=== PATIENT | male | born 1995 | race Caucasian/White ===

== ENCOUNTER 2017-05-19 11:00 | Emergency (ER) | payer OTHER ==
[~2017-05-19] VITALS: Ht 172.7 cm; Wt 68.0 kg
[2017-05-19 11:00] VITALS: BP 134/78
--- NOTE | 2017-05-19 11:51 | PHYS DOC ---
Past History Past Medical History: No Pertinent History Past Surgical History: No Surgical History Alcohol Use: None Drug Use: None Adult General Chief Complaint Chief Complaint: WRIST PAIN HPI HPI 22-year-old male presenting to the emergency department today with left wrist pain after falling with an outstretched arm. His fall occurred on . He has noticed pain in his wrist is mild nonradiating worse with movement of the wrist. It happened while he was at work. Review of systems is negative for chest pain shortness of breath fevers chills nausea vomiting. He denies any other injuries. All other review of systems is negative unless otherwise noted in history of present illness. ED course: 22-year-old male presenting to the emergency department today with left wrist pain. X-rays unremarkable. Patient discharged home to follow up with PCP. Patient was offered a splint for comfort. The patient was then discharged home in stable condition to follow up with their primary care physician over the next 2-3 days. They were to return if their symptoms worsened or if they were concerned for any reason. [id number] discharge instructions and return precautions were given. Patient's questions were answered to their satisfaction. Patient is comfortable plan. Review of Systems Review of Systems SEE ABOVE. Allergies Allergies Allergies Coded Allergies Type Severity Reaction Last Updated Verified No Known Drug Allergies 05/19/17 No Physical Exam Physical Exam Constitutional: Well developed, well nourished, no acute distress, non-toxic appearance. [] HENT: Normocephalic, atraumatic, bilateral external ears normal, oropharynx moist, no oral exudates, nose normal. [] Eyes: PERRLA, EOMI, conjunctiva normal, no discharge. [] Neck: Normal range of motion, no tenderness, supple, no stridor. [] Cardiovascular:Heart rate regular rhythm, no murmur [] Lungs & Thorax: Bilateral breath sounds clear to auscultation [] Abdomen: Bowel sounds normal, soft, no tenderness, no masses, no pulsatile masses. [] Skin: Warm, dry, no erythema, no rash. [] Back: No tenderness, no CVA tenderness. [] Extremities: Patient's left wrist has mild swelling without ecchymosis laceration or abrasion. Skin intact. Neurovascularly intact. 2 second cap refill. Otherwise no evidence of trauma to the elbow or shoulder proximally. Nontender with normal range of motion elsewhere. Neurologic: Alert and oriented X 3, normal motor function, normal sensory function, no focal deficits noted. [] Psychologic: Affect normal, judgement normal, mood normal. [] Current Patient Data Vital Signs Vital Signs Date Time Temp Pulse Resp B/P (MAP) Pulse Ox O2 Delivery O2 Flow Rate FiO2 05/19/17 11:00 98.2 56 20 100 Room Air EKG EKG [] Radiology/Procedures Radiology/Procedures [] Course & Med Decision Making Course & Med Decision Making Pertinent Labs and Imaging studies reviewed. (See chart for details) [] Dragon Disclaimer Dragon Disclaimer This chart was dictated in whole or in part using Voice Recognition software in a busy, high-work load, and often noisy Emergency Department environment. It may contain unintended and wholly unrecognized errors or omissions. Departure Departure: Impression: Primary Impression: Left wrist pain Disposition: HOME, SELF-CARE Condition: STABLE Referrals: PCP,JOSUE (PCP) PAUL MOORE MD Patient Instructions: Wrist Pain, [id number] Additional Instructions: Thank you for allowing us to participate in your care today. Followup with your primary care physician in 3 days if your symptoms do not improve. Call your Primary Doctor tomorrow and inform them of your visit today. If you do not have a primary care provider you can ask for a list of our primary care providers. Return to the emergency department you have any new or concerning findings. This should be evaluated by the primary care physician and any necessary consulting services for continued management within a few days after discharge. Return to emergency room if you have any new or concerning symptoms including but not limited to fever, chills, nausea, vomiting, intractable pain, any new rashes, chest pain, shortness of air, uncontrolled bleeding, difficulty breathing, and/or vision loss. JOSH DORADO MD May 19, 2017 11:51
--- NOTE | 2017-05-19 12:13 | RAD ---
Indication injury. Pain. AP lateral and oblique views of the left wrist were obtained as well as a navicular view. No bony abnormality is seen
== END 2017-05-19 11:54 | disposition home or self-care (01) ==
LOC: ER 11:00
DX: M25.532 Pain in left wrist (principal); W19.XXXA Unspecified fall, initial encounter; Y93.89 Activity, other specified; Y99.8 Other external cause status; Y92.89 Other specified places as the place of occurrence of the external cause
CPT/HCPCS: 73110; 99284